=== PATIENT | female | born 1940 | race Caucasian/White ===

== ENCOUNTER 2024-05-25 15:53 | Emergency (ER) | payer MEDICARE, SELFPAY ==
--- NOTE | ~2024-05-25 | CT_ITS ---
EXAMINATION: CT head/brain wo IV con CLINICAL INFORMATION: Reason for Exam fall, JANE COMPARISON: None. TECHNIQUE: Contiguous axial imaging was performed from the skull base to vertex without intravenous contrast. Sagittal and coronal reformatted images were obtained. This CT examination was performed using dose optimization techniques as appropriate, variously including the following: * Automated exposure control * Adjustment of mA and/or kV according to patient size (this includes techniques or standardized protocols for targeted exams where dose is matched to indication/reason for exam; i.e. extremities or head) Use of iterative reconstruction technique DLP: 806 mGy-cm (including CT of the cervical spine) FINDINGS: No acute osseous or soft tissue abnormality. The mastoid air cells and visualized portions of the paranasal sinuses are well aerated. There is a mixed density predominantly acute/hyperdense right holohemispheric subdural hemorrhage measuring up to 1 cm in thickness with blood products tracking along the anterior superior falx. There is associated mass effect with approximately 5 mm leftward midline shift. There is no evidence of acute territorial infarction. Cadena to white matter differentiation is well preserved. No hydrocephalus. No significant volume loss. There is no abnormal attenuation within the brain parenchyma. CT/CT head/brain wo IV con IMPRESSION: Mixed density predominantly acute/hyperdense right holohemispheric subdural hemorrhage measuring up to 1 cm in thickness with blood products tracking along the anterior superior falx. There is associated mass effect with approximately 5 mm leftward midline shift. Above impression was communicated to Dr. Kinjal Churchill on 05/25/2024 4:59 PM
--- NOTE | ~2024-05-25 | CT_ITS ---
EXAMINATION: CT CERVICAL SPINE WITHOUT CONTRAST CLINICAL INFORMATION: Fall COMPARISON: None available. TECHNIQUE: Noncontrast CT of the cervical spine was performed. Multiplanar reformations were generated and reviewed. This CT examination was performed using dose optimization techniques as appropriate, variously including the following: *Automated exposure control *Adjustment of mA and/or kV according to patient size (this includes techniques or standardized protocols for targeted exams where dose is matched to indication/reason for exam; i.e. extremities or head) *Use of iterative reconstruction technique DLP: 806 mGy-cm (including CT of the cervical spine) FINDINGS: Normal vertebral body heights. Trace anterolisthesis of C4 on C5 and C5 on C6, likely the basis of degenerative facet arthropathy. No evidence of acute fracture. No suspicious lytic or sclerotic osseous lesion. No significant abnormality of the visualized cervical soft tissues. The lung apices are clear. CT/CT cervical spine wo IV con IMPRESSION: No acute fracture or traumatic malalignment of the cervical spine
[2024-05-25 15:57] VITALS: BP 122/59; BP 132/70; PULSE 78; PULSE 79; RESP 17; TEMP 36.6; O2SAT 98; O2SAT 99; BMI 23.9
[2024-05-25 16:03] VITALS: BP 122/59; PULSE 78; RESP 18; TEMP 36.6; O2SAT 99
--- NOTE | 2024-05-25 16:14 | ED_ITS ---
HPI - Fall General Chief Complaint: Fall Stated Complaint: UNWITNESSED FALL W/ HEAD STRIKE,NUSEA,HEADACHE Time Seen by Provider: 05/25/24 16:02 Source: patient and EMS Mode of arrival: EMS Limitations: no limitations History of Present Illness ED Provider: DR. TERESA VORA HPI Narrative: Patient comes to the emergency room complaining of a fall and headache. Patient states that earlier today, she sustained a mechanical fall, tripped, landed on the left side of her body hitting the left side of her head. Patient states that she did not lose consciousness, denies pain in the left side of her body. patient Does not take any blood thinners. Patient was helped up by her daughter and then EMS was called. Patient states that other than a bit of a headache on the left side where she landed, she has no complaints. Patient states that she did not have any lacerations. patient states that she fell around 11:30. Between 11 30 and prior to arrival, approximately 17:00, patient was sent home, family had the patient walking around the house, patient states that she was feeling okay, patient had mild localized pain in the scalp, therefore the family convince the patient to get checked out in the hospital. Related Data Home Medications ?Medication ?Instructions ?Recorded ?Confirmed No Known Home Meds 01/18/23 01/18/23 Allergies Allergy/AdvReac Type Severity Reaction Status Date / Time lisinopril Allergy Mild Abdominal Verified 05/25/24 16:00 Pain morphine [MORPHINE] Allergy Unknown MSC Verified 05/25/24 16:00 Review of Systems 2 Review of Systems: Constitutional : No Weight loss, No Fever, No Chills, No Night Sweats, No Fatigue, No Malaise ENT/Mouth : No Hearing loss, No Ear Pain, No Nasal Congestion, No Sinus Pain, No Hoarseness, No sore throat, No Rhinorrhea, No Swallowing Difficulty Eyes: No Eye Pain, No Swelling, No Redness, No Foreign Body, No Discharge, No Vision Changes Cardiovascular : No Chest Pain, No SOB, No Dyspnea on Exertion, No Orthopnea, No Edema, No Palpitations Respiratory : No Cough, No Sputum, No Wheezing, No Smoke Exposure, No Dyspnea Gastrointestinal : No Nausea, No Vomiting, No Diarrhea, No Constipation, No abdominal Pain, No Hematochezia, No Melena Genitourinary : no irregular bleeding, No Dysuria, No Urinary Frequency, No Hematuria, No Urinary Incontinence, No Urgency, No Flank Pain, No Urinary Flow Changes, No Hesitancy Musculoskeletal : No joint pain, No Myalgias, No Joint Swelling Skin : No Skin Lesions, No rash Neuro : No Weakness, No Numbness, No Paresthesias, No Loss of Consciousness, No Dizziness, complaining of mild Headache Psych : No Anxiety/Panic, No Depression, No SI/HI/AH/VH, No Social Issues, Heme/Lymph: No Bruising, No Bleeding,No Lymphadenopathy Endocrine : No Polyuria, No Polydipsia, No Temperature Intolerance [facility] Past Medical History Medical History (Updated 05/25/24 @ 17:20 by Teresa Vora MD) Hypothyroidism Hypertension Social History Social History Smoked in Last 30 Days: No Use of substances other than those prescribed or required for medical reasons: No Advance Directives: Yes Advance Directives Information Provided: No Advance Directives on File: No Do you have a plan to hurt others: No Plan Physical Exam 2 Vital Signs: Vital Signs: Last Vital Signs Temp 98.7 F 05/25/24 17:40 Pulse 81 05/25/24 17:40 Resp 20 05/25/24 17:40 BP 104/59 L 05/25/24 17:40 Pulse Ox 97 05/25/24 17:40 O2 Del Method Room Air 05/25/24 17:40 BMI result Body Mass Index 23.9 Const: Other: Appearance: Alert. Oriented X3. No acute distress. Eyes: Pupils equal, round and reactive to light. ENT: Pharynx normal. Neck: Normal inspection. Neck supple. No lymph nodes noted. No crepitus CVS: Normal heart rate and rhythm. Pulses normal. Normal S1 and S2 Respiratory: No respiratory distress. Breath sounds normal. No Wheezing. No rales Abdomen: Soft and nontender. No rigidity. No distention. Skin: Skin warm and dry. Normal skin color. Normal skin turgor. Abrasions or lacerations in the scalp Extremities: No lower extremity edema. No Lacerations. No Rash Neuro: Oriented X 3. No motor deficit. No sensory deficit. Moving all extremities. No slurred speech. CN 2 through 12 grossly intact Psych: calm, cooperative, normal affect Course Course Course Narrative: -patient is neurologically intact -no obvious injuries -head CT and neck CT pending -patient states that she took Tylenol today at 11:00 for chronic pain, patient requesting 1 dose of ibuprofen p.o.. -Of note, patient's daughter and at bedside. They state that the patient has had multiple falls over last few weeks. Usually the patient does not tell him when she falls. Patient states that before today, the last time she fell was probably about a week ago, however, the and the daughter state that she fell a few days ago rather than a week ago Medications Administered Discontinued Medications Generic Name Dose Route Start Last Admin Trade Name Margret PRN Reason Stop Dose Admin Ibuprofen 600 mg 05/25/24 16:13 05/25/24 16:51 Ibuprofen 600 Mg Tablet PO 05/25/24 16:14 600 mg ONCE ONE Administration Medical Decision Making Medical Decision Making [facility] Narrative: - my interpretation of CT scan of the head: There is subdural hematoma on the right side with a proximally 4 mm leftward shift. - Patient states that she has mild pain on the left side in the scalp earlier, no headache - patient's GCS is 15, no neurological deficits - patient's vitals stable, blood pressure 122/59, heart rate 78, respirations 18, O2 sat 99% on room air - my interpretation of EKG: Normal sinus rhythm, heart rate 81, no ST segment depression or elevation, no T-wave inversion, QTC 432 - all of patient's labs pending I discussed the CT scan report with Radiology, patient has a subdural hematoma, approximately 1 cm in thickness, with a 5-6 mm leftward shift. - GCS remains at 15 with stable vitals. - I discussed the above-mentioned with the patient's family, agreeable to transfer - I discussed the patient with Dr. Sanchez from the trauma team at [facility], patient was accepted, patient will be transferred ED to ED for a trauma consult Differential Diagnosis Differential Diagnoses: The differential diagnosis associated with the presentation includes ( epidural hematoma, subdural hematoma, contusion, concussion) Admission/Observation Consideration of admission/observation: Escalation of care including admission/observation considered Consult Healthcare Provider Management of the patient was discussed with: Director Of Marketing Communications Lab Data [facility] Lab Attestation statement: I reviewed the patient's lab results. 05/25/24 17:27 05/25/24 17:27 Labs: Lab Results 06/28/24 Range/Units 17:27 WBC 17.2 H (4.8-10.8) X10*3/uL RBC 4.27 (4.20-5.50) X10*6/uL Hgb 13.1 (12.0-16.0) g/dl Hct 39.7 (37.0-47.0) % MCV 93.0 (80.0-98.0) fL MCH 30.7 (27.0-33.0) pg MCHC 33.0 (31.0-35.0) g/dl RDW 13.6 (11.0-16.0) % Plt Count 253 (160-400) X10*3/uL MPV 10.0 (9.4-12.3) fL Immature Gran % (Auto) 0.3 (0.0-0.4) % Neut % (Auto) 91.7 H (45-73) % Lymph % (Auto) 4.6 L (20-40) % Douglas % (Auto) 3.1 (2-11) % Eos % (Auto) 0.1 (0-4) % Baso % (Auto) 0.2 (0-2) % Lymph # (Auto) 0.8 L (1.2-4.9) X10*3/uL Douglas # (Auto) 0.5 (0.1-1.2) X10*3/uL Eos # (Auto) 0.0 (0.0-0.4) X10*3/uL Baso # (Auto) 0.0 (0.0-0.2) X10*3/uL Abs Immat Gran (auto) 0.06 H (0.00-0.03) X10*3/uL Absolute Neuts (auto) 15.8 H (2.0-8.3) x10*3/uL Absolute Nucleated RBC 0.000 (0.0-0.012) X10*3/uL Nucleated RBC % (auto) 0.0 (0.0-0.2) /100WBC Independent Interpretation I performed an independent interpretation of an: CT Scan Radiology Impression Discussion of test interpretation with radiology: I discussed test interpretation with the radiologist and I have reviewed the radiologist's reading. Radiologist Impression: FINDINGS: No acute osseous or soft tissue abnormality. The mastoid air cells and visualized portions of the paranasal sinuses are well aerated. There is a mixed density predominantly acute/hyperdense right holohemispheric subdural hemorrhage measuring up to 1 cm in thickness with blood products tracking along the anterior superior falx. There is associated mass effect with approximately 5 mm leftward midline shift. There is no evidence of acute territorial infarction. Cadena to white matter differentiation is well preserved. No hydrocephalus. No significant volume loss. There is no abnormal attenuation within the brain parenchyma. CT/CT head/brain wo IV con IMPRESSION: Mixed density predominantly acute/hyperdense right holohemispheric subdural hemorrhage measuring up to 1 cm in thickness with blood products tracking along the anterior superior falx. There is associated mass effect with approximately 5 mm leftward midline shift. Independent Historian Clinical information obtained from an independent historian. History obtained from or confirmed by: Spouse and Other ( patient's daughter) Critical Care Time Critical Care Time Critical Care Time: Yes Total Critical Care Time: 45 Attestation: I have personally provided critical care time. Time includes review of lab data, radiology results, discussion with consultants, and monitoring for potential decompensation. Intervention performed as documented. Discharge Plan Discharge Clinical Impression: Subdural hematoma Patient Disposition: [facility] Transfer Details: ED to ED, [facility], Dr. Sanchez Prescriptions: No Action No Known Home Meds Print Language: Uzbek
[2024-05-25] MEDS: Ibuprofen 600 MG TABLET PO (16:51)
--- NOTE | 2024-05-25 16:59 | ECG_ITS ---
Test Reason : falls Blood Pressure : / mmHG Vent. Rate : 081 BPM Atrial Rate : 081 BPM P-R Int : 196 ms QRS Dur : 088 ms QT Int : 372 ms P-R-T Axes : 068 -01 033 degrees QTc Int : 432 ms Normal sinus rhythm Possible Anterior infarct , age undetermined Abnormal ECG When compared with ECG of 19-OCT-2010 06:28, No significant change was found Referred By: Kinjal Churchill Electronically Signed By:EMERSON BARNEY MD
[2024-05-25 17:12] VITALS: BP 117/49; PULSE 88; RESP 18; O2SAT 100
[2024-05-25 17:40] VITALS: BP 104/59; PULSE 81; RESP 20; TEMP 37.1; O2SAT 97
[2024-05-25 17:42] LABS: Basophils Percent Auto 0.2 % (0-2); Eosinophils Percent Auto 0.1 % (0-4); Hematocrit 39.7 % (37.0-47.0); Hemoglobin 13.1 g/dl (12.0-16.0); Imm Gran Abs Auto 0.06 X10*3/uL (0.00-0.03); Imm Gran Pct Auto 0.3 % (0.0-0.4); Lymphocytes Absolute Auto 0.8 X10*3/uL (1.2-4.9); Lymphocytes Percent Auto 4.6 % (20-40); MANUAL DIFF FLAG SCAN; Mean Corpuscular Hemoglobin 30.7 pg (27.0-33.0); Monocytes Absolute Auto 0.5 X10*3/uL (0.1-1.2); Monocytes Percent Auto 3.1 % (2-11); Neutrophils Absolute Auto 15.8 x10*3/uL (2.0-8.3); Neutrophils Percent Auto 91.7 % (45-73); Platelet Count 253 X10*3/uL (160-400); Red Blood Count 4.27 X10*6/uL (4.20-5.50); Red Cell Distribution Width 13.6 % (11.0-16.0); SCAN SMEAR FLAG 1; White Blood Count 17.2 X10*3/uL (4.8-10.8)
[2024-05-25 17:53] LABS: Alanine Aminotransferase 22 U/L (0-31); Albumin Level 4.4 g/dL (3.5-5.0); Alkaline Phosphatase 81 U/L (39-117); Anion Gap 16 (12-20); Aspartate Amino Transferase 32 U/L (5-31); Bilirubin Direct 0.1 mg/dL (0.0-0.5); Bilirubin Total 0.3 mg/dL (0.0-1.0); Blood Urea Nitrogen 25 mg/dL (9-16); Calcium 10.6 mg/dL (8.4-10.2); Carbon Dioxide 18 mmol/L (22-29); Chloride 108 mmol/L (96-108); Creatinine Clr Calc Pharmacy 26.7; Estimated Glomerular Filt Rate 38; Ethanol < 10 mg/dL; Glucose Random 116 mg/dL (60-115); Potassium 4.3 mmol/L (3.3-5.1); Sodium 138 mmol/L (135-145); Total Protein 8.1 g/dL (6.5-8.0)
--- NOTE | 2024-05-25 17:53 | MHC.EDTECH ---
Patient was assisted unto bed marte ,void ,urine sample collected and sent to lab ,Patient and daughter at bedside ,Patient is A &O ,Call galvan within Pt reach .
[2024-05-25 17:54] LABS: Magnesium 1.4 mg/dL (1.6-2.6)
[2024-05-25 18:01] LABS: Troponin-I High Sensitivity < 2.7 ng/L (<3.5-17.0)
[2024-05-25 18:09] LABS: Appearance Urine Clear; Color Urine Yellow; Glucose Urine UA Negative (Negative); Leukocyte Esterase Urine Trace (Negative); Nitrite Urine Negative (Negative); UMIC TRIGGER UACC YES; Urine Blood Negative (Negative); Urine Ketones Negative (Negative); Urine Protein Trace mg/dL (Neg-Trace)
[2024-05-25 18:20] VITALS: BP 104/59; PULSE 81; RESP 20; TEMP 37.1; O2SAT 97
[2024-05-25 18:25] LABS: SLIDE REVIEW VERIFIED
[2024-05-25 18:26] LABS: COVID-19 Test Negative (Negative); IDNOW Serial# 08D9AD1C; IDNOW Serial# 152EDE1D; Influenza A Negative (Negative); Influenza B2 Negative (Negative)
[2024-05-25 18:50] LABS: Bacteria Urine None Seen (None Seen); RBC Urine 0-2 /HPF (0-2); Squamous Epithelial Cell Urine 0-2 /HPF (0-2); UACC Culture Trigger YES
== END 2024-05-25 18:17 | disposition short-term general hospital (02) ==
PROVIDERS: Emergency Provider Emergency Medicine; PCP Internal Medicine
DX: S06.5X0A Traumatic subdural hemorrhage without loss of consciousness, initial encounter (principal); R11.2 Nausea with vomiting, unspecified; R51.9 Headache, unspecified; R94.31 Abnormal electrocardiogram [ECG] [EKG]; M54.2 Cervicalgia; M25.50 Pain in unspecified joint; W01.10XA Fall on same level from slipping, tripping and stumbling with subsequent striking against unspecified object, initial encounter; Y93.9 Activity, unspecified; Y92.9 Unspecified place or not applicable; Y99.8 Other external cause status; Z11.52 Encounter for screening for COVID-19; Z79.899 Other long term (current) drug therapy; Z51.81 Encounter for therapeutic drug level monitoring
CPT/HCPCS: 70450; 72125; 80048; 80076; 80307; 81001; 83735; 84484; 85025; 87086; 87502; 87635; 93005; 99285

== ENCOUNTER → 2024-05-25 16:59 | Outpatient (BNV) | payer MEDICARE, SELFPAY | PROVIDERS: Emergency Provider Emergency Medicine; PCP Internal Medicine; Visit Provider Internal Medicine Cardiovascular Disease | DX: R94.31 Abnormal electrocardiogram [ECG] [EKG] (principal) | CPT/HCPCS: 93010 ==

== ENCOUNTER 2025-07-02 15:20 | Emergency (ER) | payer MEDICARE, SELFPAY ==
--- NOTE | ~2025-07-02 | CT_ITS ---
EXAMINATION: CT HEAD WITHOUT CONTRAST CLINICAL INFORMATION: Unwitnessed fall COMPARISON: May 17, 2024 TECHNIQUE: Contiguous axial imaging was performed from the skull base to vertex without intravenous administration of contrast. This CT examination was performed using dose optimization techniques as appropriate, variously including the following: *Automated exposure control *Adjustment of mA and/or kV according to patient size (this includes techniques or standardized protocols for targeted exams where dose is matched to indication/reason for exam; i.e. extremities or head) *Use of iterative reconstruction technique DLP: 817 mGY*cm FINDINGS: There is no acute ischemic change. There is no intracranial hemorrhage. There is no mass-effect or midline shift. Basal cisterns and ventricles are within normal limits for age/cerebral volume. Orbits are symmetrical and unremarkable. Paranasal sinuses and mastoid air cells are pneumatized. There are no bony abnormalities. CT/CT head/brain wo IV con IMPRESSION: No acute intracranial abnormality. Electronically signed by: Gregor Levine MD 07/02/2025 05:05 PM EDT
--- NOTE | ~2025-07-02 | CT_ITS ---
EXAMINATION: CT CERVICAL SPINE WITHOUT CONTRAST CLINICAL INFORMATION: Unwitnessed fall COMPARISON: None available. TECHNIQUE: Axial imaging was performed from the base of the skull through T2 without IV contrast. Coronal and sagittal reformatted images were generated from the original axial data set. ALARA: The examination used one or more of the following radiation dose reduction techniques: Automated exposure control, iterative reconstruction, and/or adjustment of mA and/or KV. DLP: 817 mGY*cm FINDINGS: Pyrophosphate deposition is present in the transverse ligament. There is moderate degenerative changes in the adjacent anterior C1-C2 articulation with sclerosis and osteophytes. Moderate to severe facet joint space narrowing and osteophytes are present on the left greater than the right and most advanced at C4-5 and C5-6. No fracture lines are evident. Lung apexes are clear. CT/CT cervical spine wo IV con IMPRESSION: No acute fracture. 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 Electronically signed by: Gregor Levine MD 07/02/2025 05:16 PM EDT
[2025-07-02 15:23] VITALS: BP 118/78; PULSE 100; O2SAT 94
[2025-07-02 15:41] VITALS: BP 104/60; PULSE 88; RESP 16; TEMP 36.7; O2SAT 93; BMI 22.9
--- NOTE | 2025-07-02 15:45 | ED_ITS ---
HPI - Fall General Chief Complaint: Fall Stated Complaint: mechanical fall Time Seen by Provider: 07/02/25 15:31 Source: patient and EMS Mode of arrival: EMS Limitations: no limitations History of Present Illness ED Provider: ANDRIA LANE PA-C HPI Narrative: 85-year-old female with past medical history significant for hypothyroidism, HTN, traumatic subdural hematoma in 04/2024 presents to the emergency department today via EMS from home following an unwitnessed mechanical fall around 1130 today. Patient states she was ambulating through her home using her cane when she tripped forward, causing her to fall to the ground. She does not believe she struck her head stating well my head doesn't hurt . She does not believe she lost consciousness. She reports waiting on the floor until her daughter came over a few hours later. Upon arrival, daughter called EMS for transport to ED. At present, patient reports small skin tear to her right forearm. Other than that, she has no physical complaints. She denies any symptoms preceding the fall such as chest pain, dizziness, headache, vision changes, palpitations. To her knowledge, she is not on any anticoagulation. She currently lives home with her . She states her was at work when she fell. Related Data Previous Rx's ?Medication ?Instructions ?Recorded cefuroxime axetil 500 mg tablet 500 mg PO BID 7 days # 14 tabs 07/02/25 Allergies Allergy/AdvReac Type Severity Reaction Status Date / Time lisinopril Allergy Mild Abdominal Verified 07/02/25 15:45 Pain morphine (MORPHINE) Allergy Unknown MSC Verified 07/02/25 15:45 Review of Systems 2 Review of Systems: Yes all other systems are reviewed and are negative [facility] Past Medical History Attestation statement: The following information was validated with the patient. Source: old records reviewed and nursing notes reviewed Medical History Hypothyroidism Hypertension Social History Social History Use of substances other than those prescribed or required for medical reasons: No Advance Directives: No Advance Directives Information Provided: No Physical Exam 2 Vital Signs: Vital Signs: Last Vital Signs Temp 98.4 F 07/02/25 18:33 Pulse 77 08/05/25 18:33 Resp 22 H 07/02/25 18:33 BP 114/63 07/02/25 18:33 Pulse Ox 97 07/02/25 18:33 O2 Del Method Room Air 07/02/25 18:33 BMI result Body Mass Index 22.9 vital signs stable General: Well appearing, in no acute distress. Skin: small skin tear noted to dorsal aspect of left forearm with small surrounding hematoma. no active bleeding. Head: Normocephalic, atraumatic. No palpable hematoma, skull fracture. No raccoon eyes. No mortensen sign. EENT: Hearing is intact b/l. Conjunctiva clear. Sclera is anicteric. PERRLA. EOM intact. Moist mucous membranes.?Noted bruising to left lower lip. Dentition intact. No septal hematoma. Neck: In cervical collar Cardiac: Chest wall symmetric. RRR. No reproducible tenderness to anterior, lateral or posterior chest esqueda. Lungs: Normal respiratory effort without accessory muscle use. CTA bilaterally Abdomen: Soft, non-tender, non-distended. No rebound tenderness or guarding. Positive BS x4. Back: No midline spinous or paraspinal tenderness. No step off deformity. Ext: Upper and lower extremities atraumatic, without tenderness, deformity, swelling or erythema Neuro: AOx3. Normal speech. NIH 0. Strength 5/5 intact throughout. Sensation intact to light touch. NV intact distally Course Course Course Narrative: 1858 -- leukocytosis to 15.8 with left shift. Chemistry showing hypomagnesemia to 1.3. Potassium of 3.3. Potassium and magnesium repleted. No other acute electrolyte abnormalities requiring intervention. Mild JEAN MARIE with BUN of 37 and creatinine of 1.46. 1L IVF given. Liver function around baseline. Total CK 185, unlikely rhabdo. CT head without intracranial bleed or skull fracture. CT cervical spine without fracture or subluxation. c collar removed. UA concerning for UTI - will start patient on ceftin. skin tear to left forearm cleansed with saline + iodine, steri strips applied, jabier wrap applied to hematoma for compression. Patient has remained stable throughout ED visit today. Discussed worrisome signs and symptoms and when to return to the ED. All questions answered at this time. Patient is agreeable with disposition and stable for discharge. Her daughter and are at bedside and will be transporting her home today. Medications Administered Generic Name Dose Route Start Last Admin Trade Name Margret PRN Reason Stop Dose Admin Potassium Chloride 10 meq in 100 mls @ 100 mls/hr 07/02/25 17:15 07/02/25 18:22 Potassium Chloride/H20 IV 07/02/25 19:14 100 mls/hr Q1H ALECIA Administration Discontinued Medications Generic Name Dose Route Start Last Admin Trade Name Margret PRN Reason Stop Dose Admin Magnesium Sulfate 2 gm in 50 mls @ 150 mls/hr 07/02/25 17:06 07/02/25 18:26 Magnesium Sulfate/H2o IV 07/02/25 17:25 Infused ONCE ONE Infusion Sodium Chloride 1,000 mls @ 999 mls/hr 07/02/25 17:15 07/02/25 18:24 Ns IV 07/02/25 18:15 999 mls/hr .Q1H1M ALECIA Administration Potassium Chloride 40 meq 07/02/25 17:06 07/02/25 18:21 Potassium Chloride Packet 20 Meq Packet PO 07/02/25 17:07 40 meq ONCE ONE Administration Medical Decision Making Medical Decision Making MDM Narrative: 85-year-old female with past medical history significant for hypothyroidism, HTN, traumatic subdural hematoma in 04/2024 presents to the emergency department today via EMS from home following an unwitnessed mechanical fall around 1130 today. vital signs stable. she is well appearing, in NAD. in cervical collar on arrival. Differential diagnosis includes anemia, electrolyte abnormality, dehydration, intracranial bleed, cervical fracture versus subluxation versus contusion, rhabdomyolysis. Plan for screening labs, imaging, UA, re-evaluation. Differential Diagnosis Differential Diagnoses: The differential diagnosis associated with the presentation includes as above. Admission/Observation not indicated Lab Data [facility] Lab Attestation statement: I reviewed the patient's lab results. as above. 07/02/25 16:26 07/02/25 16:26 Labs: Lab Results 07/02/25 07/02/25 Range/Units 16:26 18:36 WBC 15.8 H (4.8-10.8) X10*3/uL RBC 4.30 (4.20-5.50) X10*6/uL Hgb 13.6 (12.0-16.0) g/dl Hct 38.8 (37.0-47.0) % MCV 90.2 (80.0-98.0) fL MCH 31.6 (27.0-33.0) pg MCHC 35.1 H (31.0-35.0) g/dl RDW 14.8 (11.0-16.0) % Plt Count 330 D (160-400) X10*3/uL MPV 9.4 (9.4-12.3) fL Immature Gran % (Auto) 0.4 (0.0-0.4) % Neut % (Auto) 86.1 H (45-73) % Lymph % (Auto) 5.7 L (20-40) % [place] % (Auto) 6.6 (2-11) % Eos % (Auto) 0.8 (0-4) % Baso % (Auto) 0.4 (0-2) % Lymph # (Auto) 0.9 L (1.2-4.9) X10*3/uL [place] # (Auto) 1.0 (0.1-1.2) X10*3/uL Eos # (Auto) 0.1 (0.0-0.4) X10*3/uL Baso # (Auto) 0.1 (0.0-0.2) X10*3/uL Abs Immat Gran (auto) 0.06 H (0.00-0.03) X10*3/uL Absolute Neuts (auto) 13.6 H (2.0-8.3) x10*3/uL Absolute Nucleated RBC 0.000 (0.0-0.012) X10*3/uL Nucleated RBC % (auto) 0.0 (0.0-0.2) /100WBC PT 11.0 (10.9-12.4) SEC INR 1.0 (0.9-1.1) Sodium 137 (135-145) mmol/L Potassium 3.3 D (3.3-5.1) mmol/L Chloride 107 (96-108) mmol/L Carbon Dioxide 17 L (22-29) mmol/L Anion Gap 16 (12-20) BUN 37 H (9-16) mg/dL Creatinine 1.46 H (0.5-1.4) mg/dL Estim Creat Clear Calc 24.7 Estimated GFR 34 Random Glucose 91 (60-115) mg/dL Calcium 10.4 H (8.4-10.2) mg/dL Magnesium 1.3 L* (1.6-2.6) mg/dL Total Bilirubin 0.3 (0.0-1.0) mg/dL AST 40 H (5-31) U/L ALT 31 (0-31) U/L Alkaline Phosphatase 91 (39-117) U/L Total Creatine Kinase 185 H (26-140) U/L Total Protein 7.6 (6.5-8.0) g/dL Albumin 4.4 (3.5-5.0) g/dL Urine Color Yellow Urine Appearance Cloudy Urine pH 5.5 (5.0-9.0) Ur Specific [place] 1.020 (1.005-1.025) Urine Protein 30 (1+) H (Neg-Trace) mg/dL Urine Glucose (UA) Negative (Negative) mg/dL Urine Ketones Trace (Negative) mg/dL Urine Blood Negative (Negative) Urine Nitrite Negative (Negative) Ur Leukocyte Esterase Large (3+) H (Negative) Urine RBC 0-2 (0-2) /HPF Urine WBC 21-50 H (0-5) /HPF Ur Squamous Epith Cells 0-2 (0-2) /HPF Urine Bacteria 2+ (None Seen) Hyaline Casts 0-2 (0-2) /LPF Independent Interpretation I performed an independent interpretation of an: CT Scan Interpretation: CT head/brain without bleed CT cervical spine without fracture Radiology Impression Discussion of test interpretation with radiology: I have reviewed the radiologist's reading. Radiologist Impression: Date of Service: 07/02/25 Procedure(s): CT head/brain wo IV con Accession Number(s): [id number] cc: ANABELLE REYES MD; Andria Lane~ Report Number: [id number]: Total DLP = 590.00 mGy-cm EXAMINATION: CT HEAD WITHOUT CONTRAST CLINICAL INFORMATION: Unwitnessed fall COMPARISON: May 17, 2024 TECHNIQUE: Contiguous axial imaging was performed from the skull base to vertex without intravenous administration of contrast. This CT examination was performed using dose optimization techniques as appropriate, variously including the following: *Automated exposure control *Adjustment of mA and/or kV according to patient size (this includes techniques or standardized protocols for targeted exams where dose is matched to indication/reason for exam; i.e. extremities or head) *Use of iterative reconstruction technique DLP: 817 mGY*cm FINDINGS: There is no acute ischemic change. There is no intracranial hemorrhage. There is no mass-effect or midline shift. Basal cisterns and ventricles are within normal limits for age/cerebral volume. Orbits are symmetrical and unremarkable. Paranasal sinuses and mastoid air cells are pneumatized. There are no bony abnormalities. CT/CT head/brain wo IV con IMPRESSION: No acute intracranial abnormality. Electronically signed by: Gregor Levine MD 07/02/2025 05:05 PM EDT Date of Service: 07/02/25 Procedure(s): CT cervical spine wo IV con Accession Number(s): [id number] cc: ANABELLE REYES MD; Andria Lane~ Report Number: [id number]: Total DLP = 227.00 mGy-cm EXAMINATION: CT CERVICAL SPINE WITHOUT CONTRAST CLINICAL INFORMATION: Unwitnessed fall COMPARISON: None available. TECHNIQUE: Axial imaging was performed from the base of the skull through T2 without IV contrast. Coronal and sagittal reformatted images were generated from the original axial data set. ALARA: The examination used one or more of the following radiation dose reduction techniques: Automated exposure control, iterative reconstruction, and/or adjustment of mA and/or KV. DLP: 817 mGY*cm FINDINGS: Pyrophosphate deposition is present in the transverse ligament. There is moderate degenerative changes in the adjacent anterior C1-C2 articulation with sclerosis and osteophytes. Moderate to severe facet joint space narrowing and osteophytes are present on the left greater than the right and most advanced at C4-5 and C5-6. No fracture lines are evident. Lung apexes are clear. CT/CT cervical spine wo IV con IMPRESSION: No acute fracture. 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 Electronically signed by: Gregor Levine MD 07/02/2025 05:16 PM EDT Independent Historian Clinical information obtained from an independent historian. History obtained from or confirmed by: EMS External Record Review External record reviewed: Inpatient record Prescription Management I considered prescription management with: Pain Medication and Antibiotic (ceftin) Social Determinants Patient?s care significantly limited by Social Determinants of Health including: Other Social Determinant of Health Critical Care Time Critical Care Time Critical Care Time: No Discharge Plan Discharge Clinical Impression: Fall, Hypomagnesemia, Hypokalemia, Dehydration, Skin tear of left upper extremity, Acute UTI Patient Disposition: Home, Self-Care Instructions: Hypokalemia (ED), Hypomagnesemia (ED), Fall Prevention (ED), Urinary Tract Infection in Older Adults (ED) Additional Instructions: You were evaluated in the ED today following a trip and fall. The CT scan of your head and neck are normal. There is no intracranial bleed. There is no fracture. Your blood work showed low levels of magnesium and potassium. This was repleted in the ED today. It is essential that you follow up with your primary care provider for repeat labs in 2 weeks to ensure that these levels are still normal. Your blood work also showed that you are dehydrated. Make sure you are staying adequately hydrated at home. You have a small skin tear to your left forearm. This was cleansed and covered with Steri-Strips. The Steri-Strips will fall off on their own. Do not pick at them. Your urine shows a urinary tract infection. I am sending an antibiotic to your pharmacy. Take this to completion. Return with any new or worsening symptoms. In the case of an emergency call 911 Prescriptions: New cefuroxime axetil 500 mg tablet 500 mg PO BID 7 Days Qty: 14 0RF Referrals: Anabelle Reyes MD [Primary Care Provider, Medical] Print Language: Ukrainian
[2025-07-02 16:31] LABS: MANUAL DIFF FLAG NO
[2025-07-02 16:42] LABS: Hematocrit 38.8 % (37.0-47.0); Hemoglobin 13.6 g/dl (12.0-16.0); Imm Gran Abs Auto 0.06 X10*3/uL (0.00-0.03); Imm Gran Pct Auto 0.4 % (0.0-0.4); Lymphocytes Absolute Auto 0.9 X10*3/uL (1.2-4.9); Mean Corpuscular HGB Conc 35.1 g/dl (31.0-35.0); Mean Corpuscular Hemoglobin 31.6 pg (27.0-33.0); Mean Corpuscular Volume 90.2 fL (80.0-98.0); NRBC Abs Auto 0.000 X10*3/uL (0.0-0.012); NRBC Pct Auto 0.0 /100WBC (0.0-0.2); Platelet Count 330 X10*3/uL (160-400); Red Blood Count 4.30 X10*6/uL (4.20-5.50); White Blood Count 15.8 X10*3/uL (4.8-10.8)
[2025-07-02 16:49] LABS: INTERNATIONAL NORM RATIO 1.0 (0.9-1.1); Prothrombin Time 11.0 SEC (10.9-12.4)
[2025-07-02 16:52] LABS: Alanine Aminotransferase 31 U/L (0-31); Albumin Level 4.4 g/dL (3.5-5.0); Alkaline Phosphatase 91 U/L (39-117); Anion Gap 16 (12-20); Aspartate Amino Transferase 40 U/L (5-31); Blood Urea Nitrogen 37 mg/dL (9-16); Calcium 10.4 mg/dL (8.4-10.2); Carbon Dioxide 17 mmol/L (22-29); Chloride 107 mmol/L (96-108); Creatinine Clr Calc Pharmacy 24.7; Estimated Glomerular Filt Rate 34; Magnesium 1.3 mg/dL (1.6-2.6); Potassium 3.3 mmol/L (3.3-5.1); Sodium 137 mmol/L (135-145); Total Protein 7.6 g/dL (6.5-8.0)
[2025-07-02] MEDS: Magnesium Sulfate/H2O 2 GM/50 ML PIGGYBACK IV (17:32)
[2025-07-02] MEDS: Potassium Chloride Packet 20 MEQ PACKET 40 MEQ PO (18:21)
[2025-07-02] MEDS: Potassium Chloride/H20 10 MEQ/100 ML PIGGYBACK 100 MEQ IV ×2 (18:22→19:20)
[2025-07-02 18:33] VITALS: BP 114/63; PULSE 77; RESP 22; TEMP 36.9; O2SAT 97
[2025-07-02 18:44] LABS: Appearance Urine Cloudy; Glucose Urine UA Negative (Negative); PH 5.5 (5.0-9.0); Specific Gravity - Urine 1.020 (1.005-1.025); UMIC TRIGGER UACC YES
[2025-07-02 18:54] LABS: UACC Culture Trigger YES
[2025-07-02 20:46] VITALS: BP 114/63; PULSE 77; RESP 18; TEMP 36.9; O2SAT 97
== END 2025-07-02 20:47 | disposition home or self-care (01) ==
PROVIDERS: Physician Assistant Medical; Emergency Provider Emergency Medicine Emergency Medical Services; PCP Internal Medicine
DX: E83.42 Hypomagnesemia (principal); E86.0 Dehydration; N39.0 Urinary tract infection, site not specified; S41.112A Laceration without foreign body of left upper arm, initial encounter; W18.39XA Other fall on same level, initial encounter; Y93.9 Activity, unspecified; Y92.9 Unspecified place or not applicable; Y99.9 Unspecified external cause status
CPT/HCPCS: 36415; 70450; 72125; 80053; 81001; 82550; 83735; 85025; 85610; 87086; 96365; 96366; 96367; 99284; J3475; J3480

== ENCOUNTER → 2025-07-02 15:44 | Outpatient (BNV) | payer MEDICARE, SELFPAY | PROVIDERS: Emergency Provider Emergency Medicine Emergency Medical Services; PCP Internal Medicine; Visit Provider Radiology Diagnostic Radiology | DX: M50.30 Other cervical disc degeneration, unspecified cervical region (principal); Z04.3 Encounter for examination and observation following other accident | CPT/HCPCS: 70450; 72125 ==